=== PATIENT | female | born 1970 | race Caucasian/White ===

== ENCOUNTER 2019-01-07 13:15 | Emergency (ER) | payer OTHER ==
[~2019-01-07] VITALS: Ht 160 cm; Wt 45.4 kg
[2019-01-07 13:26] VITALS: Ht 160 cm; Wt 45.4 kg
[2019-01-07 17:41] VITALS: BP 117/65
== END 2019-01-07 17:39 | disposition home or self-care (01) ==
LOC: ED 13:15
DX: K94.23 Gastrostomy malfunction (principal); I10 Essential (primary) hypertension; Z88.0 Allergy status to penicillin; Z88.5 Allergy status to narcotic agent; Z88.2 Allergy status to sulfonamides
CPT/HCPCS: Q0092; Q9967

== ENCOUNTER 2019-01-21 18:07 | Emergency (ER) | payer OTHER ==
[~2019-01-21] VITALS: Ht 160 cm; Wt 54.4 kg
[2019-01-21 18:12] VITALS: Ht 160 cm; Wt 54.4 kg
[2019-01-21 18:58] LABS: BASOPHIL % 0.1 % (0-2); PLATELET COUNT 287 x10^3mcL (130-400)
[2019-01-21 19:10] LABS: CALCIUM 8.9 mg/dL (8.5-10.1); CARBON DIOXIDE 29.2 mmol/L (21-32); CHLORIDE SERUM 100 mmol/L (98-107); CREATININE SERUM 0.6 mg/dL (0.6-1.0); GFR1 > 60 mL/min; GLUCOSE SERUM 110 mg/dL (74-106); POTASSIUM SERUM 4.1 mmol/L (3.5-5.1); SODIUM SERUM 136 mmol/L (136-145)
[2019-01-21 19:18] LABS: microscopic required? NO
[2019-01-21 19:21] LABS: ALBUMIN 3.9 g/dL (3.4-5.0); ALKALINE PHOSPHATASE 159 U/L (46-116); ALT/SGPT 57 U/L (14-59); AST/SGOT 37 U/L (15-37); BILIRUBIN TOTAL 0.18 mg/dL (0.20-1.00); C REACTIVE PROTEIN 0.4 mg/dL (<=0.9)
[2019-01-21 19:27] LABS: TOTAL PROTEIN, SERUM 9.7 g/dL (6.4-8.2)
[2019-01-21 19:31] LABS: urine erythrocyte NEGATIVE (NEGATIVE)
[2019-01-21 19:33] LABS: T3 TOTAL 0.77 ng/mL
[2019-01-21 19:35] LABS: CK-MB 0.5 ng/mL (0-3.6)
[2019-01-21 19:41] LABS: ERYTHROCYTE SED RATE 46 mm/hr (0-20)
[2019-01-21 19:46] LABS: FREE T4 0.6 ng/dL (0.76-1.46); FREE THYROXINE INDEX 1.9 ug/dL (1.4-4.5); T4(THYROXINE) 5.7 ug/dL (4.7-13.3)
[2019-01-21 20:31] VITALS: BP 136/93
== END 2019-01-21 21:04 | disposition home or self-care (01) ==
LOC: ED 18:07
PROVIDERS: Specialist
DX: R11.10 Vomiting, unspecified (principal); Z88.0 Allergy status to penicillin; Z88.5 Allergy status to narcotic agent; Z88.2 Allergy status to sulfonamides
CPT/HCPCS: 84439; 87804; J2405; Q0092

== ENCOUNTER 2020-01-29 12:56 | Inpatient (IN) | payer OTHER, SELFPAY ==
[~2020-01-29] VITALS: Ht 170.2 cm; Wt 68.0 kg
[2020-01-29 13:11] VITALS: Ht 170.2 cm; Wt 68.0 kg
[2020-01-29 15:00] LABS: BASOPHIL % 0.1 % (0-2); PLATELET COUNT 256 x10^3mcL (130-400); RED CELL DISTRIBUTION WIDTH 13.3 % (11.5-14.5)
[2020-01-29 15:49] LABS: CALCIUM 8.5 mg/dL (8.5-10.1); CARBON DIOXIDE 29.7 mmol/L (21-32); CHLORIDE SERUM 94 mmol/L (98-107); CREATININE SERUM 0.6 mg/dL (0.6-1.0); GFR1 > 60 mL/min; GLUCOSE SERUM 116 mg/dL (74-106); POTASSIUM SERUM 3.7 mmol/L (3.5-5.1); SODIUM SERUM 130 mmol/L (136-145)
[2020-01-29] MEDS ORDERED: BACLOFEN1 POW (15:54)
[2020-01-29] MEDS ORDERED: FLE10 PO (15:55)
[2020-01-29] MEDS ORDERED: VAL5 (15:55)
[2020-01-29 15:56] LABS: ALKALINE PHOSPHATASE 136 U/L (46-116); ALT/SGPT 50 U/L (14-59); AST/SGOT 34 U/L (15-37); BILIRUBIN TOTAL 0.3 mg/dL (0.20-1.00); LACTIC DEHYDROGENASE (LDH) 125 U/L (100-190)
[2020-01-29 15:57] LABS: ALBUMIN 2.6 g/dL (3.4-5.0)
[2020-01-29] MEDS ORDERED: PHENOBARBITAL PO (15:59)
[2020-01-29] MEDS ORDERED: GOOD NEIGHBOR150 M1 (16:00)
[2020-01-29] MEDS ORDERED: REGLAN5 M1 (16:00)
[2020-01-29 16:20] LABS: C REACTIVE PROTEIN 22.2 mg/dL (<=0.9)
[2020-01-29 17:57] VITALS: BP 121/74
[2020-01-29 18:38] LABS: AMPHETAMINE QUAL UR NONE DETECTED (See below)
[2020-01-29 19:00] LABS: microscopic required? YES; urine erythrocyte 1+ (NEGATIVE)
[2020-01-29 21:43] VITALS: BP 134/47
[2020-01-30 06:39] VITALS: BP 137/69
[2020-01-30 07:50] LABS: CARBON DIOXIDE 26.4 mmol/L (21-32); CREATININE SERUM 0.6 mg/dL (0.6-1.0); GFR1 > 60 mL/min; GLUCOSE SERUM 100 mg/dL (74-106); MAGNESIUM 1.8 mg/dL (1.8-2.4); PHOSPHOROUS 1.7 mg/dL (2.5-4.9)
[2020-01-30 07:53] LABS: BASOPHIL % 0.3 % (0-2); PLATELET COUNT 252 x10^3mcL (130-400)
[2020-01-30 08:17] LABS: CHLORIDE SERUM 101 mmol/L (98-107); POTASSIUM SERUM 3.8 mmol/L (3.5-5.1); SODIUM SERUM 134 mmol/L (136-145)
[2020-01-30 08:31] LABS: T3 TOTAL 1.03 ng/mL
[2020-01-30 08:41] LABS: FREE T4 1.09 ng/dL (0.76-1.46); FREE THYROXINE INDEX 2.2 ug/dL (1.4-4.5); T4(THYROXINE) 6.6 ug/dL (4.7-13.3)
[2020-01-30 09:20] VITALS: BP 135/75
[2020-01-30 18:27] VITALS: BP 108/86
[2020-01-30 20:27] VITALS: BP 137/79
[2020-01-31 02:08] VITALS: BP 135/74
[2020-01-31 05:37] VITALS: BP 124/76
[2020-01-31 06:57] LABS: BASOPHIL % 0.3 % (0-2); PLATELET COUNT 299 x10^3mcL (130-400); RED CELL DISTRIBUTION WIDTH 13.1 % (11.5-14.5)
[2020-01-31 07:24] LABS: CALCIUM 8.2 mg/dL (8.5-10.1); CARBON DIOXIDE 26.8 mmol/L (21-32); CHLORIDE SERUM 101 mmol/L (98-107); CREATININE SERUM 0.4 mg/dL (0.6-1.0); GFR1 > 60 mL/min; GLUCOSE SERUM 93 mg/dL (74-106); MAGNESIUM 1.9 mg/dL (1.8-2.4); PHOSPHOROUS 2.8 mg/dL (2.5-4.9); POTASSIUM SERUM 3.8 mmol/L (3.5-5.1); SODIUM SERUM 136 mmol/L (136-145)
[2020-01-31 09:45] VITALS: BP 126/80
[2020-01-31 12:22] VITALS: BP 127/75
[2020-01-31 17:22] VITALS: BP 119/64
[2020-01-31 20:09] VITALS: BP 125/76
[2020-02-01 05:42] VITALS: BP 154/81
[2020-02-01 06:30] LABS: BASOPHIL % 0.2 % (0-2); PLATELET COUNT 305 x10^3mcL (130-400); RED CELL DISTRIBUTION WIDTH 13.1 % (11.5-14.5)
[2020-02-01 06:37] LABS: CALCIUM 8.4 mg/dL (8.5-10.1); CHLORIDE SERUM 101 mmol/L (98-107); CREATININE SERUM 0.5 mg/dL (0.6-1.0); GFR1 > 60 mL/min; GLUCOSE SERUM 97 mg/dL (74-106); MAGNESIUM 2.1 mg/dL (1.8-2.4); PHOSPHOROUS 2.7 mg/dL (2.5-4.9); POTASSIUM SERUM 4.1 mmol/L (3.5-5.1); SODIUM SERUM 134 mmol/L (136-145)
[2020-02-01 09:01] VITALS: BP 131/83
[2020-02-01 12:50] VITALS: BP 135/80
[2020-02-01 16:18] VITALS: BP 122/79
[2020-02-01 20:10] VITALS: BP 112/67
[2020-02-02 05:58] VITALS: BP 115/92
[2020-02-02 07:03] LABS: CARBON DIOXIDE 26.6 mmol/L (21-32); CHLORIDE SERUM 100 mmol/L (98-107); CREATININE SERUM 0.5 mg/dL (0.6-1.0); GFR1 > 60 mL/min; GLUCOSE SERUM 100 mg/dL (74-106); POTASSIUM SERUM 4.3 mmol/L (3.5-5.1); SODIUM SERUM 137 mmol/L (136-145)
[2020-02-02 07:04] LABS: BASOPHIL % 0.2 % (0-2); RED CELL DISTRIBUTION WIDTH 13.3 % (11.5-14.5)
[2020-02-02 07:12] LABS: PLATELET COUNT 441 x10^3mcL (130-400)
[2020-02-02 07:44] VITALS: BP 133/80
[2020-02-02] MEDS ORDERED: PROZ20 PO (09:01)
[2020-02-02] MEDS ORDERED: LAC PEG (09:03)
[2020-02-02] MEDS ORDERED: MERREM IV1 GM INJ (10:03)
[2020-02-02 12:10] VITALS: BP 115/75
[2020-02-02 17:54] VITALS: BP 153/87
[2020-02-02] MEDS ORDERED: CEFTAZIDIME2 GM IJ (18:25)
[2020-02-02 20:33] VITALS: BP 141/88
[2020-02-03 05:51] VITALS: BP 160/86
[2020-02-03 08:35] VITALS: BP 151/84
[2020-02-03] MEDS ORDERED: CEFTAZIDIME2 GM IV (09:50)
[2020-02-03 12:22] VITALS: BP 168/87
[2020-02-03 17:05] VITALS: BP 169/88
[2020-02-03 18:55] VITALS: BP 144/78
[2020-02-03 20:49] VITALS: BP 164/85
[2020-02-04 05:07] VITALS: BP 142/76
[2020-02-04 06:46] LABS: BASOPHIL % 0.1 % (0-2); RED CELL DISTRIBUTION WIDTH 13.5 % (11.5-14.5)
[2020-02-04 07:03] LABS: PLATELET COUNT 539 x10^3mcL (130-400)
[2020-02-04 07:08] LABS: CALCIUM 8.6 mg/dL (8.5-10.1); CARBON DIOXIDE 27.6 mmol/L (21-32); CHLORIDE SERUM 101 mmol/L (98-107); CREATININE SERUM 0.5 mg/dL (0.6-1.0); GFR1 > 60 mL/min; GLUCOSE SERUM 137 mg/dL (74-106); MAGNESIUM 2.3 mg/dL (1.8-2.4); PHOSPHOROUS 2.2 mg/dL (2.5-4.9); POTASSIUM SERUM 4.7 mmol/L (3.5-5.1); SODIUM SERUM 135 mmol/L (136-145)
[2020-02-04 09:22] VITALS: BP 129/82
[2020-02-04 12:05] VITALS: BP 134/77
[2020-02-04 17:00] VITALS: BP 127/56
[2020-02-04 20:49] VITALS: BP 140/72
[2020-02-05 05:33] VITALS: BP 146/83
[2020-02-05 07:13] LABS: BASOPHIL % 0.3 % (0-2); RED CELL DISTRIBUTION WIDTH 13.7 % (11.5-14.5)
[2020-02-05 07:36] LABS: CALCIUM 8.6 mg/dL (8.5-10.1); CARBON DIOXIDE 25.6 mmol/L (21-32); CHLORIDE SERUM 98 mmol/L (98-107); CREATININE SERUM 0.3 mg/dL (0.6-1.0); GFR1 > 60 mL/min; GLUCOSE SERUM 93 mg/dL (74-106); MAGNESIUM 2.4 mg/dL (1.8-2.4); PHOSPHOROUS 2.1 mg/dL (2.5-4.9); POTASSIUM SERUM 4.2 mmol/L (3.5-5.1); SODIUM SERUM 130 mmol/L (136-145)
[2020-02-05 08:20] VITALS: BP 130/67
[2020-02-05 08:24] LABS: PLATELET COUNT 502 x10^3mcL (130-400)
[2020-02-05 12:14] VITALS: BP 130/67
[2020-02-05 12:29] VITALS: BP 132/76
== END 2020-02-05 14:25 | DRG 871 ==
LOC: ED 12:56 → EDBEDREQ 15:58 → DU 15:58
PROVIDERS: Family Medicine; Specialist; ADMIT Student in an Organized Health Care Education/Training Program
PROC: 02HV33Z Insertion of Infusion Device into Superior Vena Cava, Percutaneous Approach (ICD-10-PCS; principal; 2020-02-02)
PROC: B548ZZA Ultrasonography of Superior Vena Cava, Guidance (ICD-10-PCS; 2020-02-02)
DX: A41.9 Sepsis, unspecified organism (principal); E43 Unspecified severe protein-calorie malnutrition; R53.2 Functional quadriplegia; J96.21 Acute and chronic respiratory failure with hypoxia; J15.1 Pneumonia due to Pseudomonas; E87.1 Hypo-osmolality and hyponatremia; G93.1 Anoxic brain damage, not elsewhere classified; N39.0 Urinary tract infection, site not specified; B95.1 Streptococcus, group B, as the cause of diseases classified elsewhere; Z66 Do not resuscitate; Z51.5 Encounter for palliative care; E03.9 Hypothyroidism, unspecified; Z20.828 Contact with and (suspected) exposure to other viral communicable diseases; G40.909 Epilepsy, unspecified, not intractable, without status epilepticus; Z88.0 Allergy status to penicillin; Z88.2 Allergy status to sulfonamides; Z88.8 Allergy status to other drugs, medicaments and biological substances; Z93.1 Gastrostomy status; Z90.49 Acquired absence of other specified parts of digestive tract; Z68.23 Body mass index [BMI] 23.0-23.9, adult; Z79.899 Other long term (current) drug therapy
CPT/HCPCS: 36600; 83880; 84439; 85378; 87804; C1751; G0378; J0360; J0456; J1580; J1956; J2060; J2185; J3370; J7030; J7050; Q0092